=== PATIENT | female | born 1990 | race Caucasian/White ===

== ENCOUNTER → 2020-11-22 | Outpatient (REF) | LOC: M LAB 16:07 | PROVIDERS: ATTEND Nurse Practitioner Adult Health | DX: Z00.00 Encounter for general adult medical examination without abnormal findings (principal) ==

== ENCOUNTER → 2021-01-26 | Outpatient (CLI) | payer OTHER ==
--- NOTE | 2021-01-27 17:25 | REP ---
INDICATION: GEST DIABETES, GROWTH COMPARISON: None. TECHNIQUE: Transabdominal obstetrical ultrasound with color Doppler evaluation. FINDINGS: Examination demonstrates a single live intrauterine in cephalic presentation. motion is identified by technologist. Placenta is noted anterior and grade 3 without evidence for placenta previa or abruption. Amniotic fluid volume is normal. Cervix measures 3.6 cm in length and appears closed.. Selected gestational age: 31 weeks 1 day with MARIELA 03/29/2021. Gestational age by current measurements 31 weeks 4 days with MARIELA 03/26/2021. FHR equals 142 beats per minute. Estimated weight 1889 grams (70thpercentile). JORGE LUIS: 11.7 cm IMPRESSION: Single live advanced gestation in cephalic presentation demonstrating appropriate estimated weight and amniotic fluid volume. <Electronically signed by Ron Cueto > 01/27/21 [id number]
== END ==
LOC: M RAD 12:00
PROVIDERS: ATTEND Registered Nurse Maternal Newborn
DX: Z36.9 Encounter for antenatal screening, unspecified (principal); Z3A.31 31 weeks gestation of pregnancy

== ENCOUNTER 2021-03-29 12:31 | Inpatient (IN) | payer OTHER ==
[~2021-03-29] VITALS: Ht 160 cm; Wt 73.8 kg
[2021-03-29] VITALS (11 sets, daily range): BP systolic 124–145; BP diastolic 71–91
[2021-03-29] MEDS ORDERED: PRENTAB9 PO (13:16)
[2021-03-29] MEDS ORDERED: FISH1000 PO (13:17)
[2021-03-29] MEDS ORDERED: CETI10CA2 PO (13:17)
[2021-03-29] MEDS ORDERED: COLA100C5 PO (13:17)
[2021-03-29] MEDS ORDERED: LACTATED RINGER'S 1000 ML IV STA (13:31)
[2021-03-29 13:34] LABS: BASO % 0.2 % (0.0-1.0); EOS # 0.1 10^3/uL (0.0-0.5); HEMOGLOBIN 12.6 g/dl (12.0-15.5); LYMPH # 1.8 10^3/uL (1.5-5.0); MEAN CORPUSCULAR HEMOGLOBIN 36.3 pg (27.0-33.0); MEAN CORPUSCULAR VOLUME 100.9 fl (80.0-96.0); MONO # 0.5 10^3/uL (0.0-0.8); MONO % 5.9 % (2.0-8.0); NEUTROPHILS % 71.5 % (36.0-66.0); PLATELET COUNT, AUTOMATED 131 10^3/uL (150-450); RED BLOOD COUNT 3.47 10^6/uL (4.00-5.40); WHITE BLOOD COUNT 8.3 10^3/uL (4.0-10.0)
[2021-03-29] MEDS ORDERED: LIDOCAINE 1% MDV 20ML VIAL INFIL PRN (13:35)
[2021-03-29] MEDS ORDERED: OXYTOCIN DRIP 30 UNITS in IV 1 EA IV PRN (13:35)
--- NOTE | 2021-03-29 13:53 | HPEPDOC ---
Obstetrical History & Physical General Date of Admission Mar 29, 2021 at 12:31 History of Present Illness 30 yo at 40+0 weeks by LMP of [id number] c/w 6+4 week US presented to L&D with SROM and labor. She reported leaking fluid this morning and came to the office. There she was found to have ruptured membranes and be in labor. She was sent to L&D. She denies any vaginal bleeding. She endorses irregular contractions but that they are very painful when they occur. She endorses regular movement. Chief Complaint: LOF, term Information Provided By: Patient Age: 30 : 3 Term: 2 Pre-term: 0 Abortions: 0 Livin Care Care: Good Care Dating Final EDC: Mar 29, 2021 Final EDC for Daily Update: Mar 29, 2021 Final EDC by: LMP LMP: Jun 19, 2020 (MARIELA of [id number] set by LMP of [id number] c/w 6+4 week US) Antepartum Course Diagnos(e)s GDMA1 --> well controlled through diet alone Fam hx of congenital heart defect ---> echo normal in current History of macrosomia (last child 9lbs 15oz) --> growth scan at 36+5 weeks had baby in the 80th percentile for growth Past Medical History Past Obstetrical History : Past Obstetrical History: Multigravida (Term X2. First in 2012 and 2nd in 2013. 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 hemorrhoids Surgical History: Other ([place] teeth, breast biopsy of fibroadenoma (benign)) Family History Significant Family History: No pertinent family hx, Other (Fam hx of congenital heart defect) Social History Marital Status: Family situation: Spouse/partner home Psychosocial History: No pertinent psych hx * Smoker: non-smoker Alcohol: Denies Drugs: denies Imunizations Tdap status: current Influenza Status: needs Allergies Coded Allergies: No Known Allergies (Unverified , 03/29/21) Medications Scheduled Docusate Sodium (Colace) 100 Mg Capsule, 1 CAP PO BID [place]-3 Fatty Acids/Fish Oil (Fish Oil 1,000 mg Capsule) 1 Each Capsule, 1 CAP PO DAILY No.137/Iron/Folic Acd ( Vitamin Tablet) 1 Each Tablet, 1 TAB PO DAILY Miscellaneous Medications Cetirizine HCl (ZyrTEC) 10 Mg Capsule, 10 MG PO Physical Examination Physical Examination GENERAL: Alert and oriented times three. ABDOMEN: Gravid and non-tender to touch. FETUS: Is vertex (VTX) by sterile vaginal examination (SVE) EXTREMITIES: No edema. PELVIC (in office by [facility] DiCampli): Ruptured membranes confirmed with + ferning and +nitrazine. Laboratory Data 24H LABS Laboratory Tests 2 03/29/21 12:44: Serology Scanned Report Hepatitis B Testing 03/29/21 13:11: Immature Granulocyte % (Auto) 0.4, Neutrophils (%) (Auto) 71.5H, Lymphocytes (%) (Auto) 21.0L, Monocytes (%) (Auto) 5.9, Eosinophils (%) (Auto) 1.0, Basophils (%) (Auto) 0.2, Neutrophils # (Auto) 6.0, Lymphocytes # (Auto) 1.8, Monocytes # (Auto) 0.5, Eosinophils # (Auto) 0.1, Basophils # (Auto) 0.0, Nucleated Red Blood Cells % (auto) 0.0 CBC/BMP Laboratory Tests 03/29/21 13:11 Urine Culture: No Growth Pertinent Laboratoy Data Blood Type: O+ RBC Antibody Screen: Negative HIV: Negative Hepatitis B: Negative Hepatitis C: Unknown Rapid Plasma Reagin: Nonreactive Rubella: Immune Varicella: Immune Chlamydia/Gonorrhea: Negative Group B Streptococcus: Negative Quad Screen Test: Negative Cystic Fibrosis: Unknown Glucose Tolerance Test: 189 (3hr: 179/185/122/97) Anatomy Ultrasound Placenta Location: Anterior Normal Anatomy: Yes Placenta Previa: No Other Ultrasounds Growth scan at 36 weeks: 7lbs 5oz (80th percentile) by weight Steroid Therapy Steroid Therapy: No Vaginal Examination Dilation: 6 cm Effacement: 80% Station: -2 (exam by [facility] DiCamp) Cervical Consistency: Soft Cervical Position: Middle Presentation: Cephalic presentation Position: Vertex (occiput) Assessment Heart Rate (FHR): 125 Variability: Moderate Accelerations: Positive Decelerations: Early Tocometer Contractions: Yes Frequency: irregular Assessment/Plan Assessment 30 yo at 40+0 weeks presented with SROM and labor. Plan Admit for expectant management of labor. Will augment as clinically indicated. Apply fluids. Labs per L&D protocol. Fingerstick glucose testing. GBS negative. Clear liquid diet. Patient may have epidural if desired. Anticipate . Labor and Delivery Counseling Vaginal delivery / Operative vaginal delivery / C section counseling We will deliver your baby through the vagina with possible assistance of forceps or vacuum device if needed for maternal or indications. Forceps and vacuum are devices that can assist with vaginal delivery when normal pushing efforts cannot achieve delivery on their own or when delivery is needed in an emergency for baby's well-being. Medications may be required to induce or augment (help) your labor in order to achieve a vaginal delivery. An episiotomy may be required to help your baby to delivery vaginally. You may also require repair of any lacerations or tears of your vagina or vulva that are caused by delivery. In some cases, emergencies can occur that require an emergency section delivery so quickly that there may not be enough time to stop and complete consent forms for section. Understand that if this occurs, your providers will discuss the need for a section with you before they proceed with surgery. section is the delivery of your baby through an incision in your abdomen. In some situations, section may be safer to mom and baby than continuing labor and is only performed when clinically indicated. Risks of vaginal delivery include but are not limited to: Bleeding, infection, injury to the vagina, pelvic structures, injury to baby, damage to the uterus, reactions to anesthesia, uterine rupture, risk of hysterectomy for life threatening bleeding, or . Medications used to induce or augment labor may increase your risk for infection, uterine tachysystole, uterine rupture, heart rate abnormalities, need for emergency delivery or possible hysterectomy, and hemorrhage. Additional risks for use of forceps and vacuum include: increased risk of perineal and vaginal lacerations, risk of urinary or bowel incontinence, increased risk of injury to baby with bruising, scratches, hematomas on the head, or intracranial bleeding. Ms. Palomo appears to understand these risks and elects to proceed with her labor at this location. She also consents to a blood transfusion if necessary. All questions answered. Leighton Hebert DO, LEIGHTON MILLER DO Mar 29, 2021 13:53
[2021-03-29] MEDS: LR 1,000 ML IV SCH ×3 (16:39→18:25)
[2021-03-29] MEDS ORDERED: FENTANYL 2MCG/ML ROPIVACAINE 0.2% IN 0.9% NACL 100ML IVBAG As Ordered ONE (16:53)
[2021-03-29] MEDS: FENTANYL/ROPIVACAINE/NACL BAG 100 ML EPIDURAL SCH (17:19)
[2021-03-29] MEDS ORDERED: LACTATED RINGER'S 1000 ML IV PRN (17:45)
[2021-03-29] MEDS ORDERED: ONDANSETRON 4MG/2ML VIAL IV PRN (17:45)
[2021-03-29] MEDS ORDERED: NALOXONE INJ 0.4MG/1ML VIAL (J2310 PER 1MG) IV PRN (17:45)
[2021-03-29] MEDS ORDERED: EPIDURAL COMMENT XX SCH (17:45)
[2021-03-29] MEDS ORDERED: diphenhydrAMINE 50MG/ML VIAL (J1200) IV PRN (17:45)
[2021-03-29] MEDS ORDERED: REFRIGERATOR IV KEYS XX PRN (17:45)
[2021-03-29] MEDS ORDERED: EPIDURAL/PCA KEYS XX PRN (17:45)
[2021-03-29] MEDS ORDERED: ePHEDrine SULFATE 25 MG/5 ML(5MG/ML) SYRINGE IV PRN (17:45)
[2021-03-29] MEDS ORDERED: OXYTOCIN DRIP 30 UNITS in IV 1 EA IV SCH ×2 (18:05→20:40)
--- NOTE | 2021-03-29 18:07 | IPNPDOC ---
Text Note Date of Service The patient was seen on 03/29/21. NOTE Presented to room for assessment of progress. Ruchi is now comfortable with an epidural in place. Admission glucose 78. Cervix: 6/75/-1. Attempt at rupture of forebag resulted in only small amount of bloody fluid. FHR tracing - Mostly Cat I with moderate variability, +accels. Sporadic variable decels not consistent. Overall reassuring tracing. Ctx becoming more frequent. No real cervical environmental change analyst last 4+ hours. I recommended pitocin augmentation for slowed progress and Ruchi agrees. Will start and titrate per protocol. All patient questions answered. Andre Delatorre, I+O VSAndre, I+O Laboratory Tests 03/29/21 13:11 LEIGHTON BELTRE DO Mar 29, 2021 18:07
[2021-03-29] MEDS ORDERED: RHOGAM 300 MCG (1500 IU) INJ (J2790) IM SCH (20:40)
[2021-03-29] MEDS ORDERED: DIBUCAINE 1% OINTMENT 30GM TOP PRN (20:40)
[2021-03-29] MEDS ORDERED: ACETAMINOPHEN 500 MG TAB PO PRN (20:40)
[2021-03-29] MEDS ORDERED: PROMETHAZINE 25 MG TAB PO PRN (20:40)
[2021-03-29] MEDS ORDERED: ACETAMINOPHEN TAB 650MG DOSE (2X325MG) PO PRN (20:40)
[2021-03-29] MEDS ORDERED: IBUPROFEN 600MG TAB PO PRN (20:40)
[2021-03-29] MEDS ORDERED: DOCUSATE SODIUM 100MG CAPSULE PO PRN (20:40)
[2021-03-29] MEDS ORDERED: IBUPROFEN 800 MG TAB PO PRN (20:40)
[2021-03-29] MEDS ORDERED: MEASLES,MUMPS,RUBELLA VACCINE INJ (MMR-II) (90707) SC SCH (20:40)
[2021-03-29] MEDS ORDERED: METHYLERGONOVINE MALEATE 0.2 MG TAB PO PRN (20:40)
--- NOTE | 2021-03-29 20:50 | DNPDOC ---
[facility] Delivery Note Delivery Note DATE OF DELIVERY: 29Mar2021 at ~2015 PREDELIVERY DIAGNOSIS: 40+0 weeks gestation and active labor POST DELIVERY DIAGNOSIS: Delivered PROCEDURE: Spontaneous vaginal delivery COLLECTIONS AND ARCHIVES DIRECTOR: Dr. Hebert ANESTHESIA: Epidural ESTIMATED BLOOD LOSS: 300 mL. FINDINGS: 9 pound 1 ounce female infant, Score 9/9 DELIVERY SUMMARY: Ruchi is a 30 yo G3 now P3 who presented to L&D in active labor. She received an epidural, required a small amount of pitocin for augmentation, and progressed steadily into 2nd stage. She started pushing. With excellent effort her delivered after only one set of contractions. Presentation was ROLANDO with restitution to ROT. The left anterior shoulder delivered with gentle traction followed easily by the remainder of the body. The was dried and stimulated on the field and a bulb suction was used. The baby cried vigorously and was placed on the maternal abdomen. The three vessel cord was then clamped and cut by the FOB after appropriate time delay and under my direction. 3rd stage was completed with gentle traction on the cord and it was productive of an intact placenta. The uterus fundus was firmed with massage and pitocin was administered IV bolus. Inspection of the cervix, vagina, perineum, and labia revealed no lacerations. The fundus was palpated again and was confirmed to be firm. Sponge and instrument counts were correct X3. Mother and stable when I left the room. LEIGHTON Vásquez DO Mar 29, 2021 20:49
[2021-03-30] MEDS: LR 1,000 ML IV SCH ×2 (02:05→05:35)
[2021-03-30 05:54] VITALS: BP 120/71
--- NOTE | 2021-03-30 07:07 | IPNPDOC ---
Progress Note Date of Service: Mar 30, 2021 Progress Note 30 yo G3 now P3 PPD#1 s/p uncomplicated yesterday evening after being admitted for early active labor. No issues overnight. Ruchi reports feeling well this morning. She is ambulating, voiding, tolerating a regular diet. Lochia is minimal. Pain is well controlled. Vitals - VSS, afebrile, normotensive, non tachycardic General - AAOX3, sitting up in bed, pleasant and conversant, NAD Abdomen - Fundus firm at U-1. No fundal tenderness Extremities - No edema UO - appropriate Ruchi is doing well and is making an appropriate recovery. No issues. Likely discharge home tomorrow when baby is cleared by neonatology. All questions answered. Anup VS, I&O, 24H, Andre Vital Signs/I&O Vital Signs Date Time Temp Pulse Resp B/P (MAP) Pulse Ox O2 Delivery O2 Flow Rate FiO2 03/30/21 05:54 98.3 81 18 120/71 (87) Room Air I&O- Last 24 Hours up to 6 AM 03/30/21 06:00 Intake Total 1053 ml Output Total 750 ml Balance 303 ml Laboratory Data 24H LABS Laboratory Tests 2 03/29/21 12:44: Serology Scanned Report Hepatitis B Testing 03/29/21 13:11: Immature Granulocyte % (Auto) 0.4, Neutrophils (%) (Auto) 71.5H, Lymphocytes (%) (Auto) 21.0L, Monocytes (%) (Auto) 5.9, Eosinophils (%) (Auto) 1.0, Basophils (%) (Auto) 0.2, Neutrophils # (Auto) 6.0, Lymphocytes # (Auto) 1.8, Monocytes # (Auto) 0.5, Eosinophils # (Auto) 0.1, Basophils # (Auto) 0.0, Nucleated Red Blood Cells % (auto) 0.0, Syphilis Serology NONREACTIVE 03/29/21 14:30: Bedside Glucose (Misc Panel) 78 CBC/BMP Laboratory Tests 03/29/21 13:11 LEIGHTON BELTRE DO Mar 30, 2021 07:07
[2021-03-30] MEDS: PRENATAL VITAMINS CHEWABLE TABLET PO SCH (07:46)
[2021-03-30] MEDS ORDERED: HOME MED LIST COMPLETE! XX SCH (17:10)
[2021-03-30 18:00] VITALS: BP 137/84
[2021-03-31 06:00] VITALS: BP 127/85
--- NOTE | 2021-03-31 08:10 | OBDS ---
[facility] Obstetrical Discharge Sum. Obstetrical Discharge Summary Date: Mar 31, 2021 : 2 Term: 2 VDRL: ABO Blood Group (b) Rh: Positive Rubella: Immune Anesthesia: Regional Anesthesia A/P, Post Course List any complications Admission diagnosis: ACTIVE LABOR/SROM, 6cm fibroid, hx of HSV Discharge diagnosis: Uncomplicated Condition at Discharge: STABLE Discharge Instructions: Home Activity: Pelvic rest for 6 weeks Diet: regular Medications: at [place] Follow-up: 6 weeks pp Other: planning vasectomy for contraception. can use barrier contraception until then. CLARA PERSAUD MD Mar 31, 2021 08:09
[2021-03-31] MEDS ORDERED: IBUP80TA PO (08:11)
[2021-03-31] MEDS ORDERED: ACET-683 PO (08:11)
[2021-03-31] MEDS: PRENATAL VITAMINS CHEWABLE TABLET PO SCH (08:19)
[2021-03-31 08:30] VITALS: BP 110/69
== END 2021-03-31 12:35 | disposition home or self-care (01) | DRG 807 ==
LOC: M LDI 12:31 → M OBS 22:43
PROVIDERS: ADMIT Registered Nurse; ATTEND Registered Nurse
PROC: 10E0XZZ Delivery of Products of Conception, External Approach (ICD-10-PCS; principal; 2021-03-29)
DX: O24.420 Gestational diabetes mellitus in childbirth, diet controlled (principal); Z37.0 Single live birth; Z3A.40 40 weeks gestation of pregnancy